=== PATIENT | male | born 1990 | race Caucasian/White ===

== ENCOUNTER 2018-08-14 22:42 | Emergency (ER) | payer MEDICAID, OTHER ==
[~2018-08-14] VITALS: Ht 180.3 cm; Wt 66.2 kg
[2018-08-14] MEDS ORDERED: guaiFENesin/codeine phos 10ml UD oral syrup PO ONE (23:45)
--- NOTE | 2018-08-15 00:34 | NUR ---
pt given grahm crackers,apple juice and jell-o as requested, pt tolerated well.
[2018-08-15] MEDS ORDERED: PENI500T2 PO (00:51)
[2018-08-15] MEDS ORDERED: ACET-812 PO (00:52)
[2018-08-15] MEDS ORDERED: IBUP-1984 PO (00:52)
[2018-08-15 00:57] VITALS: BP 125/75
== END 2018-08-15 00:59 | disposition home or self-care (01) ==
LOC: ER 22:43
DX: J02.0 Streptococcal pharyngitis (principal); F12.90 Cannabis use, unspecified, uncomplicated; Z79.899 Other long term (current) drug therapy
CPT/HCPCS: 87880; 99283

== ENCOUNTER 2020-09-11 09:41 | Emergency (ER) | payer MEDICAID, OTHER ==
[~2020-09-11] VITALS: Ht 177.8 cm; Wt 63.6 kg
[~2020-09-11 09:41] MED LIST: ACET-812 PO
[2020-09-11 09:44] VITALS: BP 117/73
--- NOTE | 2020-09-11 09:49 | NUR ---
PT DEMANDED TO LEAVE, DR JOAN RAMOS PT. PT STATED HAS NARCAN AT HOME AND HAS RIDE. PT REFUSED ADDITIONAL MONITORING.
== END 2020-09-11 09:53 | disposition home or self-care (01) ==
LOC: ER 09:41
DX: T40.2X1A Poisoning by other opioids, accidental (unintentional), initial encounter (principal); F12.90 Cannabis use, unspecified, uncomplicated; Z60.2 Problems related to living alone; Z72.89 Other problems related to lifestyle; Z79.899 Other long term (current) drug therapy; Y92.89 Other specified places as the place of occurrence of the external cause
CPT/HCPCS: 99283

== ENCOUNTER 2023-07-16 22:48 | Emergency (ER) | payer MEDICAID, OTHER ==
[~2023-07-16] VITALS: Ht 175.3 cm; Wt 63.6 kg
[2023-07-16 23:03] VITALS: BP 140/89; PULSE 107; RESP 16; TEMP 98; O2SAT 100
[2023-07-16] MEDS ORDERED: normal saline 1000ML IV soln IVB ONE (23:05)
== END 2023-07-16 23:30 | disposition left against medical advice (07) ==
LOC: ER 22:48
DX: T40.411A Poisoning by fentanyl or fentanyl analogs, accidental (unintentional), initial encounter (principal); F17.210 Nicotine dependence, cigarettes, uncomplicated; F12.90 Cannabis use, unspecified, uncomplicated; Z79.1 Long term (current) use of non-steroidal anti-inflammatories (NSAID); Y92.89 Other specified places as the place of occurrence of the external cause
CPT/HCPCS: 93005; 99283